=== PATIENT | female | born 1990 | race African-American/Black ===

== ENCOUNTER 2020-06-26 05:03 | Day surgery (SDC) | payer OTHER ==
[2020-06-22 16:16] VITALS: BMI 25.7
--- NOTE | 2020-06-26 06:37 | HP ---
History & Physical Update - History History: No Change - Physical Physical: No Change - Assessment Assessment: No Change - Plan Plan: No Change (No change in HP)
[2020-06-26] MEDS ORDERED: PROPOFOL 20 ML ONE ×2 (07:00)
[2020-06-26] MEDS ORDERED: MIDAZOLAM HCL 2 MG/2 ML SINGLE DOSE VIAL ONE ×3 (07:00→07:22)
[2020-06-26] MEDS ORDERED: ROCURONIUM BROMIDE 50 MG/5 ML SYRINGE ONE (07:00)
[2020-06-26] MEDS ORDERED: fentaNYL CITRATE 250 MCG/5 ML VIAL ONE ×2 (07:00)
[2020-06-26] MEDS ORDERED: SUCCINYLCHOLINE CHLORIDE 200 MG/10 ML SYRINGE ONE (07:00)
[2020-06-26] MEDS ORDERED: LIDOCAINE HCL/PF 2% SDV 5ML VIAL ONE (07:02)
[2020-06-26] MEDS ORDERED: SODIUM CHLORIDE 0.9% P/F 10 ML VIAL IJ ONE (07:02)
[2020-06-26] MEDS ORDERED: KETOROLAC TROMETHAMINE 30 MG/1 ML VIAL ONE (07:02)
[2020-06-26] MEDS ORDERED: LIDOCAINE HCL 2% JELLY (5 ML/TUBE) ONE (07:02)
[2020-06-26] MEDS ORDERED: DEXAMETHASONE SOD PHOSPHATE 4 MG/1 ML VIAL ONE (07:02)
[2020-06-26] MEDS ORDERED: ceFAZolin SODIUM 1 GM VIAL ONE (07:02)
[2020-06-26] MEDS ORDERED: CLINDAMYCIN PHOSPHATE 600 MG/4 ML VIAL ONE (07:02)
[2020-06-26] MEDS ORDERED: ROPIVACAINE HCL 0.5% 30ML VIAL ONE (07:21)
[2020-06-26] MEDS ORDERED: ceFAZolin SODIUM 1 GM VIAL IVPB ONE (07:58)
[2020-06-26] MEDS ORDERED: NEOSTIGMINE METHYLSULFATE 0.5 MG/ML - 10 ML MDV ONE (08:34)
[2020-06-26] MEDS ORDERED: GLYCOPYRROLATE 0.2 MG/1 ML VIAL ONE (08:34)
[2020-06-26] MEDS ORDERED: oxyCODONE HCL 5 MG TABLET PO PRN ×2 (08:53)
[2020-06-26] MEDS ORDERED: ONDANSETRON 4 MG/2 ML VIAL IVPUSH PRN (08:53)
[2020-06-26] MEDS ORDERED: LACTATED RINGERS SOLUTION 1,000 ML IV SCH (09:00)
--- NOTE | 2020-06-26 10:05 | OP ---
Operative Note - Note: Operative Date: 06/26/20 Pre-Operative Diagnosis: Ovarian cyst/pelvic pain Operation: Robotic assisted right ovarian cytectomy, lysis of adhesions Findings: as dictated Post-Operative Diagnosis: Same as Pre-op Surgeon: Seema Pate Back Sewer: Khanh Hawley Anesthesiologist/STILL OPERATOR HELPER: Eric Amador Anesthesia: General Specimens Removed: right ovarian cyst wall Estimated Blood Loss (mls): 20 Drains, Volume Out (mls): 100 (ml yellow urine) Fluid Volume Replaced (mls): 900 (ml lr) Operative Report Dictated: Yes
--- NOTE | 2020-06-26 10:14 | SURG ---
Surgery Flatbed Press Operator Note Flatbed Press Operator: Khanh Hawley PA-C (Suzy) Date of Service: 06/26/20 Diagnosis: Ovarian cyst/pelvic pain Procedure: Operation: Robotic assisted right ovarian cytectomy, lysis of adhesions I was present for the entirety of the operative procedure. For further detail, please refer to operative report.
[2020-06-26 12:03] VITALS: TEMP 97.6
[2020-06-26 12:50] VITALS: BP 118/78; PULSE 80
--- NOTE | 2020-06-28 16:44 | PATH ---
Surgical Pathology Report Patient Name: JUAN JOSÉ ALLEN Med. Rec. #: [id number] /Age/Gender: 1990 (Age: 29) / F Account: [id number] Location: AMBULATORY SURG Taken: 06/26/2020 Received: 06/26/2020 Reported: 06/28/2020 Physicians: Seema Pate M.D. Specimen(s) Received RIGHT OVARIAN CYST Clinical History Ovarian cyst/pelvic pain Final Diagnosis OVARIAN CYST, RIGHT, CYSTECTOMY: MATURE CYSTIC TERATOMA. Electronically Signed Brigida Brasher M.D. Gross Description Received in formalin labeled "right ovarian cyst," is a 5.5 x 2.8 x 2.2 cm focally disrupted cystic structure. The outer surface is patterson-pink and smooth. There is abundant hair within the lumen. Sectioning reveals a focal calcification. Pearl Maker sections are submitted in 4 cassettes with cassette #4 following decalcification. DL/06/26/2020 saudi/06/26/2020
--- NOTE | 2020-07-04 11:01 | OP ---
DATE OF OPERATION: 06/26/2020 PREOPERATIVE DIAGNOSES: Right dermoid cyst, pelvic pain. OPERATION: Robotic laparoscopic right ovarian cystectomy and lysis of adhesions. POSTOPERATIVE DIAGNOSES: Right dermoid cyst, pelvic pain as well as pelvic adhesive disease. PROCEDURE: Patient was taken to the operating room, placed in dorsal lithotomy position, prepped and draped in the usual sterile fashion. Timeout was performed in accordance with hospital regulations. Mcgraw catheter was then inserted into the bladder. Attention was then drawn to the abdomen where an 8-mm umbilical incision was made. Veress needle was inserted into the cavity. Approximately 3-4 L of CO2 was insufflated into the cavity. Veress needle was then removed. An 8-mm trocar was then inserted. Laparoscope and camera attached. Visualization revealed right ovarian dermoid cyst as well as pelvic adhesive disease. Two trocars were placed on the right side after 8-mm incisions were then made parallel to the umbilical incision about 10 cm apart. Two trocars were also placed on the left, one in the upper abdomen; a 5-mm incision was made, and AirSeal cannula was then inserted. An 8-mm trocar was inserted under direct visualization on the left. The da Micky robot was then side docked to the patient's bedside. Trocars were then inserted onto the da Micky robot. Instruments were then placed. [place] was placed in the left arm 1, EndoShears in arm 2, and fenestrated bipolar in arm 4. Camera in arm 2. After positions of the instruments were made near the right ovary, attention was then drawn to the console where control of the console was then done. The EndoShears were then used to make an incision into the right ovary. Suction of the fluid was then done. The cyst was collapsed. Cyst wall was identified and was removed using blunt and sharp techniques. Cyst wall was removed with the dermoid cyst. Endobag was then inserted, and the cyst was then removed. Some adhesions were noted and lysis of adhesions had been performed in the pelvis and lysis of omental adhesions was then done. The other ovary, left ovary, was noted to be normal. Left tube and right tube were noted to be normal. All instruments then removed. CO2 was removed from the abdomen. Incisions were then closed. The AirSeal cannula had to be extended to a 12 mm. So, a Omega-Luke was then used to close the 12-mm port using 0 Vicryl suture with the fascia, and the skin was then closed using 3-0 Vicryl sutures. All other sutures were closed with 3-0 Vicryl sutures in subcuticular fashion. Wounds were washed and dressed. Patient tolerated the procedure well. Estimated blood loss was 20 mL. Sj [id number]
== END 2020-06-26 13:05 | disposition home or self-care (01) ==
LOC: JASUSAT 05:03
PROVIDERS: ATTEND Obstetrics & Gynecology
PROC: 0UB04ZZ Excision of Right Ovary, Percutaneous Endoscopic Approach (ICD-10-PCS; principal; 2020-06-26 07:30)
DX: D27.0 Benign neoplasm of right ovary (principal)
CPT/HCPCS: 36415; 84703; 86850; 86900; 86901; 88305-TC; 94760

== ENCOUNTER 2024-12-04 03:00 | Inpatient (IN) | payer OTHER ==
[2024-12-04] MEDS: ELECTROLYTE-148 SOLN 500 ML IV ONE (05:20)
[2024-12-04 05:33] LABS: BASO % 0.2 % (0-2.0); EOS % 0.8 % (0-4.5); HEMATOCRIT 36.7 % (32.4-45.2); HEMOGLOBIN 12.1 GM/dL (10.7-15.3); LYMPH % 19.3 % (8-40); MCH 26.7 pg (25.7-33.7); MCHC 32.9 g/dl (32.0-36.0); MEAN CELL VOLUME 81.2 fl (80-96); MEAN PLT VOLUME 9.3 fl (7.5-11.1); MONO % 8.3 % (3.8-10.2); NEUT % 71.4 % (42.8-82.8); PLATELET COUNT 162 10^3/uL (134-434); RBC 4.51 M/mm3 (3.60-5.2); RDW 15.8 % (11.6-15.6); WHITE BLOOD COUNT 10.1 K/mm3 (4.0-10.0)
[2024-12-04 05:42] VITALS: BMI 32.3
[2024-12-04 05:44] LABS: INR 1.03 (0.83-1.09); PROTHROMBIN TIME (PATIENT) 11.3 SEC (9.7-13.0)
[2024-12-04 05:47] LABS: ACTIVATED PTT 26.4 SECONDS (25.2-36.5)
[2024-12-04] MEDS: ELECTROLYTE-148 SOLN 1,000 ML IV SCH (05:50)
[2024-12-04 05:53] LABS: CALCIUM 9.3 mg/dL (8.5-10.1); POTASSIUM 3.6 mmol/L (3.5-5.1)
[2024-12-04 05:56] LABS: CREATININE 0.8 mg/dL (0.55-1.3)
[2024-12-04] MEDS ORDERED: BUTORPHANOL TARTRATE 2 MG/ML VIAL ONE (06:24)
[2024-12-04] MEDS ORDERED: PROMETHAZINE HCL 25 MG/1 ML VIAL ONE (06:24)
[2024-12-04 06:50] LABS: HIV INTERPRETATION NEGATIVE (NEGATIVE)
[2024-12-04] MEDS: BUTORPHANOL TARTRATE 2 MG/ML VIAL IVPB ONE (06:50)
[2024-12-04] MEDS: PROMETHAZINE HCL 25 MG/1 ML VIAL IVPB ONE (06:50)
[2024-12-04] MEDS ORDERED: WITCH HAZEL 50% (TUCKS) 40 PAD/JAR PAD TP PRN (09:57)
[2024-12-04] MEDS ORDERED: METHYLERGONOVINE MALEATE 0.2 MG/1 ML AMP IM PRN (09:57)
[2024-12-04] MEDS: CITRIC ACID/SODIUM CITRATE 30 ML UNIT-DOSE CUP PO ONE (10:15)
[2024-12-04] MEDS ORDERED: morphine SULFATE/PF 1 MG/2 ML (2cc Syringe - QUVA) ONE (10:16)
[2024-12-04] MEDS ORDERED: FENTANYL CITRATE/PF 50 MCG/ML VIAL ONE (10:17)
[2024-12-04] MEDS ORDERED: OXYTOCIN 20 UNITS in 0.9% NS 20 UNIT/1,000 ML INFUS.BAG IV ONE ×2 (10:22→11:58)
[2024-12-04] MEDS ORDERED: ONDANSETRON 4 MG/2 ML VIAL ONE (10:42)
[2024-12-04] MEDS ORDERED: ceFAZolin SODIUM 1 GM VIAL ONE (10:42)
[2024-12-04] MEDS ORDERED: DEXAMETHASONE SOD PHOSPHATE 4 MG/1 ML VIAL ONE (10:42)
[2024-12-04] MEDS ORDERED: TRANEXAMIC ACID 1000 MG/10 ML VIAL ONE (10:51)
[2024-12-04] MEDS ORDERED: ONDANSETRON 4 MG/2 ML VIAL IVPUSH PRN (10:56)
[2024-12-04] MEDS ORDERED: PHENYLEPHRINE HCL 10 MG/1 ML SINGLE DOSE VIAL ONE (11:19)
[2024-12-04] MEDS ORDERED: KETOROLAC TROMETHAMINE 30 MG/1 ML VIAL ONE (11:27)
[2024-12-04] MEDS: OXYTOCIN 20 UNITS in 0.9% NS 20 UNIT/1,000 ML INFUS.BAG IV SCH (11:45)
[2024-12-04 12:19] LABS: CORD BASE EXCESS -2.9 mmol/L (0-2); CORD HCO3 23.4 mmHg (20-29); CORD PCO2 45.6 mmHg (30-78); CORD pH 7.328 (7.14-7.44)
[2024-12-04 12:22] LABS: CORD HCO3 24.3 mmHg (20-29); CORD pH 7.226 (7.14-7.44)
[2024-12-04] MEDS: OXYTOCIN 30 UNITS in 0.9% NS 30 UNIT/500 ML INFUS.BAG IVPB SCH (13:03)
[2024-12-04] MEDS: FERROUS SO4 325 MG TABLET (FP) PO SCH (13:05)
[2024-12-04] MEDS: PRENATAL VITAMINS W/ FOLIC ACID TABLET (FP) PO SCH (13:10)
[2024-12-04] MEDS ORDERED: IBUPROFEN 800 MG/8 ML IJ IVPB ONE (13:22)
[2024-12-04] MEDS: IBUPROFEN 800 MG/8 ML IJ IVPB SCH (13:25)
[2024-12-04] MEDS ORDERED: oxyCODONE HCL 5 MG TABLET PO PRN ×2 (21:57)
[2024-12-05 06:54] LABS: BASO % 0.3 % (0-2.0); EOS % 0.7 % (0-4.5); HEMOGLOBIN 10.7 GM/dL (10.7-15.3); MCH 26.5 pg (25.7-33.7); MCHC 32.4 g/dl (32.0-36.0); MEAN CELL VOLUME 81.7 fl (80-96); MEAN PLT VOLUME 9.7 fl (7.5-11.1); MONO % 6.6 % (3.8-10.2); NEUT % 75.4 % (42.8-82.8); PLATELET COUNT 142 10^3/uL (134-434); RBC 4.04 M/mm3 (3.60-5.2); RDW 15.2 % (11.6-15.6); WHITE BLOOD COUNT 15.3 K/mm3 (4.0-10.0)
[2024-12-05] MEDS: SIMETHICONE 80 MG TAB.CHEW (FP) PO PRN (09:16)
[2024-12-05] MEDS ORDERED: BISACODYL 10 MG SUPP.RECT RC PRN (09:57)
[2024-12-05] MEDS: IBUPROFEN 600 MG TABLET (FP) PO PRN (20:08)
[2024-12-05] MEDS: SENNOSIDES/DOCUSATE COMBO (SENNA PLUS) TABLET (UD) PO PRN (21:14)
[2024-12-05] MEDS: ACETAMINOPHEN 325 MG TABLET (FP) PO PRN (21:14)
[2024-12-07 07:42] LABS: BASO % 0.2 % (0-2.0); EOS % 1.4 % (0-4.5); HEMATOCRIT 35.1 % (32.4-45.2); HEMOGLOBIN 11.2 GM/dL (10.7-15.3); LYMPH % 17.4 % (8-40); MCH 26.3 pg (25.7-33.7); MCHC 31.9 g/dl (32.0-36.0); MEAN CELL VOLUME 82.2 fl (80-96); MEAN PLT VOLUME 9.1 fl (7.5-11.1); MONO % 5.3 % (3.8-10.2); NEUT % 75.7 % (42.8-82.8); PLATELET COUNT 158 10^3/uL (134-434); RBC 4.26 M/mm3 (3.60-5.2); RDW 15.5 % (11.6-15.6); WHITE BLOOD COUNT 11.7 K/mm3 (4.0-10.0)
[2024-12-07 09:49] VITALS: BP 114/81; PULSE 71; RESP 17; TEMP 98.1
== END 2024-12-07 13:35 | disposition home or self-care (01) | DRG 788 ==
LOC: JDEL 03:00 → JLDR 04:30 → J3W 14:17
PROVIDERS: ADMIT Obstetrics & Gynecology; ATTEND Obstetrics & Gynecology
PROC: 10D00Z1 Extraction of Products of Conception, Low, Open Approach (ICD-10-PCS; principal; 2024-12-04)
DX: O48.0 Post-term pregnancy (principal); O69.81X0 Labor and delivery complicated by cord around neck, without compression, not applicable or unspecified; Z3A.41 41 weeks gestation of pregnancy; Z37.0 Single live birth
CPT/HCPCS: 36415; 36600; 80048; 82803; 85025; 85461; 85610; 85730; 86780; 86850; 86870; 86880; 86900; 86901; 86902; 87389; 88307-TC; 94010; 96372; J2790